=== PATIENT | female | born 1990 | race Caucasian/White ===

== ENCOUNTER 2022-06-07 16:05 | Emergency (ER) | payer BC | END 2022-06-07 16:42 | disposition home or self-care (01) | LOC: MERGE 16:05 → VM.ED 16:05 | DX: S01.111A Laceration without foreign body of right eyelid and periocular area, initial encounter (principal); S20.211A Contusion of right front wall of thorax, initial encounter; Z88.1 Allergy status to other antibiotic agents; W18.09XA Striking against other object with subsequent fall, initial encounter; Y92.480 Sidewalk as the place of occurrence of the external cause | CPT/HCPCS: 12011; 99282 ==